=== PATIENT | female | born 1935 | race Caucasian/White ===

== ENCOUNTER → 2017-01-01 | Outpatient (CLI) | payer MEDICARE | LOC: MAMO 10:27 | DX: Z12.31 Encounter for screening mammogram for malignant neoplasm of breast (principal) | CPT/HCPCS: G0202 ==

== ENCOUNTER → 2017-02-17 | Outpatient (CLI) | payer MEDICARE | LOC: RAD 16:51 | DX: J20.9 Acute bronchitis, unspecified (principal); N39.0 Urinary tract infection, site not specified | CPT/HCPCS: 71020; 87077; 87086; 87186 ==